=== PATIENT | male | born 1980 ===

== ENCOUNTER → 2021-06-06 | Day surgery (SDC) | payer BC ==
--- NOTE | 2021-06-06 13:02 | RAD REPORT ---
EXAM DESCRIPTION: US - Guided FNA Non Breast - 06/06/2021 9:41 am CLINICAL HISTORY: ^R22.1, R93.89 COMPARISON: None TECHNIQUE: Risks, benefits and alternatives of procedure explained to the patient and informed conse nt obtained. Skin and subcutaneous tissues anesthetized with lidocaine. Under sonographic guidance, 21 gauge needle was placed into the 2.3 centimeter mass within the anteri or neck to the left of midline. Approximately 4 cc of relatively clear fluid was removed Specimens given to pathology. Patient experienced no immediate complication IMPRESSION: Fine-needle aspiration of a neck mass
== END ==
LOC: FNA 09:00
PROVIDERS: ATTEND Nurse Practitioner
PROC: 0G9G3ZX Drainage of Left Thyroid Gland Lobe, Percutaneous Approach, Diagnostic (ICD-10-PCS; principal; 2021-06-06)
DX: R22.1 Localized swelling, mass and lump, neck (principal); R93.89 Abnormal findings on diagnostic imaging of other specified body structures
CPT/HCPCS: 88162